=== PATIENT | male | born 1940 | race African-American/Black ===

== ENCOUNTER 2017-03-18 13:30 | Emergency (ER) | payer MEDICARE ==
[~2017-03-18] VITALS: Ht 177.8 cm; Wt 110.0 kg
[2017-03-18] MEDS ORDERED: IBUPROFEN 600MG TABLET PO STA (18:44)
[2017-03-18 23:47] LABS: CLARITY URINE CLEAR (CLEAR); COLOR URINE YELLOW (YELLOW); GLUCOSE URINE NEGATIVE (NEGATIVE); KETONES URINE NEGATIVE (NEGATIVE); LEUKOCYTE ESTERASE URINE NEGATIVE (NEGATIVE); NITRITE URINE NEGATIVE (NEGATIVE); OCCULT BLOOD URINE NEGATIVE (NEGATIVE); PROTEIN URINE NEGATIVE (NEGATIVE); SPECIFIC GRAVITY URINE 1.024 (1.005-1.030); UROBILINOGEN URINE 0.2 E.U./dL (0.2-1.0)
[2017-03-19 00:42] VITALS: BP 146/84
== END 2017-03-19 00:45 | disposition home or self-care (01) ==
LOC: ER 13:45
DX: M54.5 Low back pain (principal); M46.90 Unspecified inflammatory spondylopathy, site unspecified
CPT/HCPCS: 72100; 73502; 81003; 99285